=== PATIENT | male | born 1945 | race Caucasian/White ===

== ENCOUNTER 2020-03-21 08:05 | Inpatient (IN) | payer MEDICARE, SELFPAY ==
[2020-03-21] VITALS (11 sets, daily range): BP systolic 137–172; BP diastolic 72–107; PULSE 72–99; RESP 16–18; TEMP 36.6–36.9; O2SAT 97–99; BMI 17.2
--- NOTE | ~2020-03-21 | XR_ITS ---
EXAMINATION: XR chest 1V portable EXAM DATE: 03/21/2020 08:50 INDICATION: Seizure. TECHNIQUE: Portable AP frontal chest x-ray was obtained. Comparison is made to prior examination from 05/03/2019. FINDINGS: Moderate chronic hyperinflation. The lungs are clear. There are no pleural effusions. The cardiomediastinal silhouette is within normal limits. There is no pneumothorax suspected. The bone s are osteopenic. There are bony degenerative changes. IMPRESSION: 1. No acute cardiopulmonary findings. 2. Hyperinflation. Reviewed, dictated and finalized at location A.
--- NOTE | ~2020-03-21 | MR_ITS ---
EXAMINATION: MR brain/brain stem wo/w con DATE: 03/21/2020 16:00 INDICATION: Seizure TECHNIQUE: Magnetic resonance imaging (MRI) of the brain and brainstem was performed without and with 15 mL Multihance intravenous contrast. Sequences included sagittal and axial T1-weighted SE, axial d iffusion-weighted FS SE, axial T2*-weighted GRE, axial T2-weighted FLAIR, and axial T2-weighted FSE. Postcontrast axial and coronal T1-weighted SE was obtained. Apparent diffusion coefficient (ADC) maps were created. COMPARISON: 07/14/2017 FINDINGS: There are no areas of restricted diffusion to suggest acute infarction. No acute intracranial hemorrh age or abnormal intracranial mass lesion. There is a region of susceptibility artifact at the left th alamus and basal ganglia consistent with the presence of old blood products related to a hemorrhage a t this location evident on earlier CT dated 05/03/2019. This may be related to a developmental venous anomaly with a prominent contrast opacified draining vein extending through this region to the inter nal cerebral veins and greater cerebral vein of [place] on the post contrast imaging. There are scatter ed areas of nonspecific increased T2-weighted signal intensity in the cerebral white matter, predomin antly involving the deep and periventricular white matter. There are no intraparenchymal signal abnor malities seen on the other pulse sequences. Symmetric prominence of the sulci and ventricles consiste nt with moderate age-appropriate diffuse cerebral volume loss. There are no abnormal extra-axial flui d collections. Flow voids are seen in the cerebral arteries on the T2-weighted sequences consistent w ith their expected patency. Changes of bilateral intraocular lens replacement. Mucosal thickening and mucous surrounding a mucous retention in the posterior aspect of the left maxillary sinus. Visualize d orbits and soft tissues are unremarkable. There are no areas of abnormal enhancement on the post co ntrast images. IMPRESSION: 1. No acute intracranial process. 2. Chronic blood products related to a prior intraparenchymal hemorrhage involving the left basal sailaja lamus and basal ganglia which may be secondary to a developmental venous anomaly extending through th is region. 3. Age-related changes including moderate diffuse volume loss and moderate nonspecific periventricula r predominant white matter T2 hyperintensity consistent with chronic small vessel schema disease. Reviewed, dictated and finalized at location A. IMPRESSION: 1. No acute intracranial process. 2. Chronic blood products related to a prior intraparenchymal hemorrhage involv ing the left basal thalamus and basal ganglia which may be secondary to a devel opmental venous anomaly extending through this region. 3. Age-related changes including moderate diffuse volume loss and moderate nons pecific periventricular predominant white matter T2 hyperintensity consistent w ith chronic small vessel schema disease.
--- NOTE | ~2020-03-21 | CT_ITS ---
EXAMINATION: CT brain wo con EXAM DATE: 03/21/2020 09:04 INDICATION: Seizure. TECHNIQUE: Spiral CT of the head was performed without contrast. Axial, coronal and sagittal images were reviewed. The dose-length product (DLP) for this examination was 681.00 mGy-cm. The exposure w as tailored according to patient size, and iterative reconstruction (ASIR) was used as additional dos e reduction technique. Comparison is made to prior examination from 05/13/2019. FINDINGS: There is no acute intraparenchymal hemorrhage. No evidence of intraparenchymal brain mass lesion. No evidence of acute infarction. Please note that initial head CT has limited sensitivity f or small or acute infarctions. There is moderate to severe periventricular and subcortical hypodensit y, nonspecific but probably related to small vessel ischemic disease. There is moderate prominence of the sulci and ventricles related to cerebral atrophy. There is intracranial carotid arterioscler osis. There are no extra-axial collections. There is no mass effect or midline shift. Patient has had bilateral ocular lens surgery. Both globes have aspherical shape. Soft tissue is unremarkable. Moderate-sized left maxillary sinus retention cyst. There is hyperdense fluid within that sinus which could be acute hemorrhage or inspissated mucus. IMPRESSION: 1. No acute intracranial findings. 2. Chronic age related findings. 3. Left maxillary sinus inspissated mucus or blood Reviewed, dictated and finalized at location A.
--- NOTE | ~2020-03-21 | XR_ITS ---
EXAMINATION: XR barium swallow modified EXAM DATE: 03/22/2020 10:55 INDICATION: Dysphagia. TECHNIQUE: Modified barium esophagram was performed by myself to administered fluoroscopy, in conjun ction with speech pathologist who administered barium in varying consistencies as per speech patholog ist documentation. This was recorded on tape. The DAP for this procedure was 0.6 Gycm2. FINDINGS: Oral stage: Adequate function. Pharyngeal phase: Pronounced dysfunction. Laryngeal penetration: Demonstrated. Aspiration: Suspected. Laryngeal sensitivity: Absent. IMPRESSION: Significant pharyngeal phase dysfunction; Please refer to speech pathologist findings an d specific feeding recommendations. Reviewed, dictated and finalized at location A. IMPRESSION: Significant pharyngeal phase dysfunction; Please refer to speech p athologist findings and specific feeding recommendations.
--- NOTE | 2020-03-21 08:20 | ECG_ITS ---
Measurements Intervals [place] Rate: 98 P: 85 ND: 207 QRS: -62 QRSD: 110 T: 81 QT: 342 QTc: 438 Interpretive Statements SINUS RHYTHM LOW QRS VOLTAGE IN PRECORDIAL LEADS CONSIDER ANTERIOR INFARCT, AGE INDETERMINATE INFERIOR INFARCT, AGE INDETERMINATE BASELINE ARTIFACT- I, II, III, AVR, AVL, AVF, V1-V6 ABNORMAL ECG Electronically Signed On 03-21-2020 15:23:41 CDT by Gael Coy D.O.
--- NOTE | 2020-03-21 08:27 | ED.SEIZURE ---
HPI - Seizure General Chief Complaint: Seizure Stated Complaint: neuro Time Seen by Provider: 03/21/20 08:18 Source: RN notes reviewed History of Present Illness HPI Narrative: Patient presents emergency department [facility] via EMS for possible seizure. Patient was getting up out of bed this morning with staff when he had approximately 2 to 3-minute episode of being unresponsive and just staring off. There is no tonic-clonic activity noted following this the patient did have what appeared to be a postictal episode when EMS first arrived was not speaking and slowly began to speak as time went on. Patient does not recall the episode he denies any complaints at this time he does have a history of Parkinson's disease. Denies any fevers or chills chest pain shortness of breath abdominal pain nausea vomiting or any other symptoms Related Data Home Medications Medication Instructions Recorded Confirmed aspirin 325 mg PO DAILY 03/21/20 atorvastatin 40 mg PO DAILY 03/21/20 carbidopa-levodopa 1 tablet PO 03/21/20 carbidopa-levodopa 1 tablet PO HS 03/21/20 carvedilol 6.25 mg PO BID 03/21/20 clopidogrel [Plavix] 75 mg PO DAILY 03/21/20 labetalol 10 mg IV PRN 03/21/20 lisinopril 2.5 mg PO DAILY 03/21/20 nitroglycerin 0.4 mg SUBLINGUAL ONCE 03/21/20 polyethylene glycol 3350 [Miralax] 17 g PO DAILY PRN 03/21/20 Allergies Allergy/AdvReac Type Severity Reaction Status Date / Time No Known Allergies Allergy Verified 03/21/20 10:30 Review of Systems Review of Systems: Narrative: Gen.: Denies fevers or chills Eyes: Denies eye pain or visual change ENT: Denies congestion Respiratory: Denies shortness of breath or cough CV: Denies chest pain or palpitations GI: Denies abdominal pain nausea, emesis or diarrhea denies burning, urgency, frequency or hematuria Musculoskeletal: Denies back pain or muscle pain Neuro: See HPI Skin: Denies rash Except as documented, all other systems reviewed and negative [facility] Past Medical History Medical History (Updated 03/21/20 @ 11:01 by Edwin Boles DO) Parkinson's disease Social History Social History (Updated 03/21/20 @ 08:33 by Edwin C. [place], DO) Smoking status: Never smoker Gender identity (if verbalized by the patient): Male Exam Narrative: Exam Narrative: APPEARANCE: No acute distress, nontoxic, resting in bed EYES: EOMI, [place] HEENT: Normocephalic, atraumatic, OMM RESPIRATORY: No respiratory distress Clear to auscultation bilaterally with no rhonchi wheezing or rales. CARDIOVASCULAR: Regular rate and rhythm without murmurs rubs or gallops. ABDOMINAL: Soft, nontender, nondistended, no rebound or guarding MUSCULOSKELETAl: Moves all extremities. No clubbing, cyanosis or edema. NEURO: Awake and alert x 1. Following commands, speech normal, no focal deficits SKIN:: Warm, dry. No rashes lesions or abrasions PSYCHIATRIC: Normal affect/mood, Course Course Emergency Course: Discussed with patient's she states the patient was having some tremor several weeks ago and initially been started on seizure medication by Dr. Bradford however they discussed with her primary neurologist who had recommended that that medication be stopped he is only on the medicine for a few days. Patient is more awake and alert at this time Discussed with Dr. Arreola and work-up. Request patient started on Keppra 500 twice daily request MRI and EEG obtained and will follow as clinical operations consultant Discussed with Dr. Cantrell presentation work-up. Agrees with admission at this time Discussed with patient and family results of workup and diagnosis. Discussed need for admission. Patient and family understand and agree to current treatment plan Vital Signs Vital signs: Vital Signs Temperature 98.5 F 03/21/20 08:04 Pulse Rate 99 03/21/20 08:04 Respiratory Rate 18 03/21/20 08:04 Blood Pressure 168/107 H 03/21/20 08:04 Pulse Oximetry 99 03/21/20 08:04 Temperature 98.5 F 1
[2020-03-21 08:48] LABS: Basophils Percent Auto 0.4 % (0.2-1.2); Eosinophils Absolute Auto 0.1 K/mm3 (0-0.3); Eosinophils Percent Auto 1.1 % (0-4.4); Hematocrit 35.9 % (42.0-52.0); Hemoglobin 11.9 g/dL (14.0-18.0); Immature Granulocyte Absolute 0.03 K/mm3 (0.00-0.031); Immature Granulocyte Percent A 0.6 % (0-0.5); Lymphocytes Absolute Auto 0.98 K/mm3 (0.9-3.2); Lymphocytes Percent Auto 20.6 % (18.3-44.2); Mean Corpuscular HGB Conc 33.1 g/dl (32-36); Mean Corpuscular Hemoglobin 31.4 pg (26-34); Mean Corpuscular Volume 94.7 fl (80-100); Mean Platelet Volume 9.4 fl (7.4-10.4); Monocytes Absolute Auto 0.3 K/mm3 (0.1-0.6); Monocytes Percent Auto 6.3 % (2.6-8.5); Neutrophils Absolute Auto 3.4 K/mm3 (1.3-6.7); Platelet Count Result 152 k/mm3 (150-375); Red Blood Count 3.79 M/mm3 (4.6-6.20); Red Cell Distribution Width 14.6 % (11.5-14.5); White Blood Count 4.8 K/mm3 (4.5-10.0)
[2020-03-21 09:03] LABS: INR 1.2; Prothrombin Time 14.4 Seconds (11.1-14.7)
[2020-03-21 09:04] LABS: Partial Thromboplastin Time 27.5 SECONDS (22.3-36.8)
[2020-03-21 09:19] LABS: Troponin I 0.015 ng/mL (0.000-0.034)
[2020-03-21 09:48] LABS: Alanine Aminotransferase 11 U/L (4-50); Alkaline Phosphatase 61 U/L (38-126); Anion Gap 12 mmol/L (8-16); Aspartate Amino Transferase 27 U/L (17-59); Bilirubin,Total 1.2 mg/dL (0.2-1.3); Blood Urea Nitrogen 17 mg/dL (9-20); Calcium 9.9 mg/dL (8.4-10.2); Carbon Dioxide 24 mmol/L (22-30); Chloride 99 mmol/L (98-107); Estimated CRCL calculation 62 ml/min; Estimated Glomerular Filt Rate > 60; Glucose 141 mg/dL (75-110); Potassium 4.1 mmol/L (3.4-5.0); Sodium 135 mmol/L (137-145)
[2020-03-21 10:02] LABS: Add Urine Microscopic? YES; Appearance Urine Clear (Clear); Bilirubin Urine Negative (Negative); Blood Urine Negative (Negative); Color Urine Yellow (Yellow); Glucose Urine UA Negative (Negative); Ketones Urine Negative (Negative); Leukocyte Esterase Ur Negative LEU/UL (Negative); Mucus Urine Rare /lpf; Nitrate Urine Negative (Negative); Protein Urine Negative (Negative); Specific Grav Ur 1.017 (1.001-1.035); WBC Urine 0-3 /hpf
[2020-03-21] MEDS: levETIRAcetam 500MG/NACL 100ML 500 MG/100 ML BAG 400 MG IVPB ×2 (10:56→21:04)
--- NOTE | 2020-03-21 10:56 | PC.NURSE ---
pt more alert. able to carry on conversation with ease. at bedside.
--- NOTE | 2020-03-21 12:20 | PC.NURSE ---
This patient, Uriah Hernandez, was admitted to 3 [facility] Surg Room 322-02. Patient/family oriented to hospital policies and general routines including ID bracelet, bed and alarms, visiting hours, pain management, procedures, bathroom and other care routines, personal items, smoking policy, room service/diet, and visiting hours. Valuables list has been completed. Information on how to activate the Rapid Response Team has been discussed. Patient/Family are encouraged to report perceived risks to care and to ask questions if they do not understand what they are told or what they should do.
[2020-03-21 13:55] LABS: Troponin I 0.027 ng/mL (0.000-0.034)
--- NOTE | 2020-03-21 16:15 | PM.IMHP ---
H&P: HPI History of Present Illness Date/Time: 03/21/20 16:15 Chief complaint: Unresponsive episode. Narrative: Uriah Hernandez is an unfortunate 75-year-old male with, coronary artery disease, chronic anemia, and hypertension who presented to the emergency department earlier today via EMS from [facility] for evaluation after an unresponsive episode. He is not able to provide me with an accurate history as he does not recall the events that transpired today and as such a majority of this history is obtained via a review of his electronic medical records and those that [facility], as well as discussions with his via phone, with the patient's permission. Reportedly he was in usual state of health at approximately 07:00 when he was wakened by staff. About 15 minutes later they were using a sit to stand to transfer him to his wheelchair when he had an unresponsive episode lasting 2 to 3 minutes. He was reportedly ?just staring off? and he was confused when he came to. There is no mention of overt seizure activity or loss of consciousness. As the hours have progressed he is now speaking at as per his baseline. He has no prior history of seizure but Rife reports that several weeks ago he began having tremors of his upper extremities and he was started on primidone by the house doctor at the [facility]. I believe he received a drug for approximately 3 days before it was discontinued by his neurologist, Dr. Zarate at [facility]. At the time my evaluation he has no complaints and specifically denies headache, dizziness, auditory and visual changes, paresthesias, focal weakness, chest pain, shortness of breath, nausea, and vomiting. He has not had any recent falls or head trauma. Review of Systems Review of Systems: Narrative: Twelve systems were reviewed with pertinent positives and negatives as per HPI. Somewhat limited as he really has no memory as to the events that transpired this morning. In fact his came to visit today, and he did not even remember that. That was the 1st time she had seen him in 7 months as no visitors are loud at his penitentiary due to the COVID pandemic. relates to me that he has had problems with dysphagia in the past and used to feed himself and was much more independent the last time she saw him, then when she saw him today. She is also concerned as he has lost about 30 lb in the past 7 months. Except as documented, all other systems were reviewed and are negative. [facility] Past Medical History Medical History (Updated 03/21/20 @ 21:53 by Marlen Torres PA-C) Chronic anemia Coronary artery disease Late presentation anterior wall STEMI in November 2018 status post balloon angioplasty to the distal LAD. Dysphagia Hypertension Parkinson's disease Transient ischemic attack Surgical History Surgical History (Updated 03/21/20 @ 21:44 by Marlen Torres PA-C) History of cardiac catheterization (~11/2018) Status post angioplasty to the distal LAD. 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 Family History Family History Father Colon cancer Sibling Carcinoma of colon Social History Social History (Updated 03/21/20 @ 21:47 by Marlen Torres PA-C) Social History: Surrogate decision maker: Landy Hernandez, . Code status: Do not resuscitate. Smoking status: Never smoker Alcohol intake: never Substance use: never Additional living arrangements comments: He is , and he and his have 3 grown children. He is a permanent resident at [facility]. Essentially a full assist, transfers to wheelchair with sit and stand. Occasional problems with dysphagia.
--- NOTE | 2020-03-21 16:45 | WPDNEURCNPN ---
Assessment and Plan Assessment and plan (1) Seizure: Code(s): R56.9 - Unspecified convulsions Status: Acute (2) Parkinson's disease: Code(s): G20 - Parkinson's disease Status: Acute (3) Dementia: Code(s): F03.90 - Unspecified dementia without behavioral disturbance Status: Acute Additional Plan continue anticonvulsant at this time and monitor him Consult date: 03/21/20 Time Seen: 16:00 HPI: Uriah Hernandez is a 75 year old male who I probably have seen in the past has advanced Parkinson's disease at this time and cognitive dysfunction was brought in because of having had seizure which clinically does sound like that the patient has his left elbow fused for long time remains quite rigid in the bed with cognitive dysfunction however is not in any discomfort Is able to follow commands and able to tell me that he denies having any headache chest pain shortness of breath fever chills sore throat probably having some difficulty eating and I would not be surprised that he has oropharyngeal dysphagia related to underlying Parkinson's disease Review of Systems Review of Systems: All systems reviewed & are unremarkable except as noted in HPI and below PMFSH Past Medical History Medical History Parkinson's disease Family History Family History Father Colon cancer Social History Social History Smoking status: Unknown if ever smoked Alcohol intake: never Substance use: never Gender identity (if verbalized by the patient): Male Sexual Orientation (if Verbalized by the Patient): Straight or Heterosexual Spiritual care concerns: No Meds Home Medications and Allergies Home Medications Medication Instructions Recorded Confirmed Type aspirin 325 mg PO DAILY 03/21/20 History atorvastatin 40 mg PO DAILY 03/21/20 History carbidopa-levodopa 1 tablet PO 03/21/20 History carbidopa-levodopa 1 tablet PO HS 03/21/20 History carvedilol 6.25 mg PO BID 03/21/20 History clopidogrel [Plavix] 75 mg PO DAILY 03/21/20 History labetalol 10 mg IV PRN 03/21/20 History lisinopril 2.5 mg PO DAILY 03/21/20 History nitroglycerin 0.4 mg SUBLINGUAL ONCE 03/21/20 History polyethylene glycol 3350 [Miralax] 17 g PO DAILY PRN 03/21/20 History Allergies Allergy/AdvReac Type Severity Reaction Status Date / Time No Known Allergies Allergy Verified 03/21/20 10:30 Vital Signs Vital Signs - 24 hr 03/21/20 08:04 03/21/20 08:45 03/21/20 10:40 Temperature 36.9 C Pulse Rate 84 93 77 Respiratory Rate 18 16 16 Blood Pressure 168/107 H 137/88 171/101 H Pulse Oximetry 99 03/21/20 11:27 03/21/20 12:05 03/21/20 12:26 Temperature 36.7 C Pulse Rate 88 77 88 Respiratory Rate 17 18 Blood Pressure 172/98 H 158/87 H Pulse Oximetry 98 99 Exam Const: General: comfortable and no acute distress HENMT: General nose exam: Normal nares present Mouth: Yes moist mucous membranes Eyes: General: appearance normal, both eyes and all related structures Neck: Neck: supple and no JVD Resp: Effort & Inspection: normal respiratory effort Auscultation: clear to auscultation bilaterally Cardio: Rate: regular rate Rhythm: regular rhythm GI: Auscultation: normal bowel sounds Skin: General skin exam: normal color and no rashes or lesions noted Neuro: Other: if my memory does not fall to her he has lost quite a bit of weight since a loss see him few years ago is awake and alert follows commands essentially at times nonverbal but able to utter few words and sentences has clear moderately advanced dementia and also Parkinson's disease without any lateralizing focal deficits Extrem: Other: developing contractures rather 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
[2020-03-21 16:51] LABS: Troponin I 0.034 ng/mL (0.000-0.034)
[2020-03-21] MEDS: carvediloL 3.125 MG TABLET PO (22:29)
[2020-03-21] MEDS: ATORVASTATIN 40 MG TABLET PO (22:29)
[2020-03-21] MEDS: CARBIDOPA/LEVODOPA 25/100 MG CR TABLET 1 TABLET PO (22:30)
[2020-03-22] VITALS (12 sets, daily range): BP systolic 123–155; BP diastolic 58–89; PULSE 62–76; RESP 16–18; TEMP 36.5–37.2; O2SAT 97–100
[2020-03-22 06:14] LABS: Basophils Percent Auto 0.4 % (0.2-1.2); Eosinophils Percent Auto 0.4 % (0-4.4); Hematocrit 31.6 % (42.0-52.0); Hemoglobin 10.5 g/dL (14.0-18.0); Immature Granulocyte Absolute 0.01 K/mm3 (0.00-0.031); Immature Granulocyte Percent A 0.2 % (0-0.5); Lymphocytes Absolute Auto 1.04 K/mm3 (0.9-3.2); Lymphocytes Percent Auto 22.3 % (18.3-44.2); Mean Corpuscular HGB Conc 33.2 g/dl (32-36); Mean Corpuscular Hemoglobin 31.5 pg (26-34); Mean Corpuscular Volume 94.9 fl (80-100); Mean Platelet Volume 9.5 fl (7.4-10.4); Monocytes Absolute Auto 0.4 K/mm3 (0.1-0.6); Monocytes Percent Auto 7.7 % (2.6-8.5); Neutrophils Absolute Auto 3.2 K/mm3 (1.3-6.7); Platelet Count Result 121 k/mm3 (150-375); Red Blood Count 3.33 M/mm3 (4.6-6.20); Red Cell Distribution Width 14.6 % (11.5-14.5); White Blood Count 4.7 K/mm3 (4.5-10.0)
[2020-03-22 06:25] LABS: Albumin Level 3.5 g/dL (3.5-5.1); Alkaline Phosphatase 56 U/L (38-126); Anion Gap 7 mmol/L (8-16); Aspartate Amino Transferase 20 U/L (17-59); Bilirubin,Total 1.1 mg/dL (0.2-1.3); Blood Urea Nitrogen 14 mg/dL (9-20); Calcium 9.6 mg/dL (8.4-10.2); Carbon Dioxide 31 mmol/L (22-30); Chloride 99 mmol/L (98-107); Estimated CRCL calculation 52 ml/min; Estimated Glomerular Filt Rate > 60; Glucose 107 mg/dL (75-110); Phosphorus 3.7 mg/dL (2.5-4.5); Potassium 3.6 mmol/L (3.4-5.0); Sodium 137 mmol/L (137-145)
[2020-03-22 06:49] LABS: Alanine Aminotransferase < 4 U/L (4-50)
[2020-03-22] MEDS: levETIRAcetam 500MG/NACL 100ML 500 MG/100 ML BAG 400 MG IVPB ×2 (08:08→21:36)
[2020-03-22] MEDS: POTASSIUM CHLORIDE 10 MEQ TABLET.ER PO ×2 (08:09→18:25)
[2020-03-22] MEDS: CARBIDOPA/LEVODOPA 25/100 MG TABLET 2 TABLET PO ×3 (08:09→18:24)
[2020-03-22] MEDS: CARBIDOPA/LEVODOPA 12.5/50 MG TABLET 1 TABLET PO ×3 (08:09→18:25)
[2020-03-22] MEDS: carvediloL 3.125 MG TABLET PO ×2 (08:10→21:34)
--- NOTE | 2020-03-22 11:39 | PCSTNOTE ---
MBS completed. Please see ST Evaluation for details and recommendations.
[2020-03-22] MEDS: LACTATED RINGERS 1,000 ML 60 ML IV CONT (12:26)
--- NOTE | 2020-03-22 14:27 | PM.IMPN ---
Progress Note: A&P Assessment and Plan (1) Unresponsive episode: Code(s): R41.89 - Other symptoms and signs involving cognitive functions and awareness Status: Acute Assessment and Plan: The patient has been admitted to the hospitalist service overnight for further evaluation of an unresponsive episode, concerning for seizure given the fact that he was alert but ?staring off? for several minutes and was confused thereafter. Patient is at high risk of having seizures due to his history. He has no memory as to what occurred today, and states that he does not have a diagnosis of dementia. Brain CT does not show acute findings. MRI showed No acute intracranial process. 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 Age-related changes including moderate diffuse volume loss and moderate nonspecific periventricular predominant white matter T2 hyperintensity consistent with chronic small vessel schema disease. Patient was started on IV Keppra q.12 in the ER An EEG was ordered on the patient and pending at this time Neurology was consulted from the ER for further evaluation of possible seizure activity Continue monitoring the patient at this time and appreciate neurology input. (2) Dysphagia: Code(s): R13.10 - Dysphagia, unspecified Status: Acute Assessment and Plan: Patient reports history of dysphagia as well as a 30 lb weight loss in last 7 months. Swallow study showed penetration of thin liquids, no acute signs of aspiration, unable to clear, 12nd to leg with swallowing. Speech therapy recommends her being NPO at this point in time due to his history. I talked to the patient's who states he has had swallowing issues in the past but worked with therapy and it has otherwise improved and he is on a regular diet with thin liquids at the senior living. Explained to her how the swallow study went and their recommendations. At this time she is okay with patient being NPO with some IV fluid hydration. She wants to talk with her family about the next steps. She does not really want him to have a G-tube placed at this time. I gave her the options of allowing him to eat, keeping his DNR status and then returning back to the senior living with the risk of aspiration and severe infection in the future verses placing him on hospice upon discharge to prevent further hospitalizations in case severe infection occurs he does need to come back to the hospital. She will be is be tomorrow morning to discuss her wishes since she is the power of corporate associate attorney. Continue monitoring. (3) Parkinson's disease: Code(s): G20 - Parkinson's disease Status: Acute Assessment and Plan: We will continue with his oral Parkinson's medications at this time. (4) Hypertension: Code(s): I10 - Essential (primary) hypertension Status: Acute Assessment and Plan: This morning but he received his home medications. Will continue monitoring. Make adjustments as necessary. (5) Chronic anemia: Code(s): D64.9 - Anemia, unspecified Status: Acute Assessment and Plan: Normocytic anemia with stable H&H at this time. No acute signs of bleeding. Most likely his baseline. (6) Coronary artery disease: Code(s): I25.10 - Atherosclerotic heart disease of [place] coronary artery without angina pectoris Status: Acute Assessment and Plan: No chest pain or shortness of breath reported by the patient. Will continue home medications at this time. Continue monitoring
--- NOTE | 2020-03-22 15:30 | WPDNEUROPN ---
Progress Note: A&P Assessment and Plan (1) Coronary artery disease: Code(s): I25.10 - Atherosclerotic heart disease of [place] coronary artery without angina pectoris Status: Acute (2) Chronic anemia: Code(s): D64.9 - Anemia, unspecified Status: Acute (3) Dysphagia: Code(s): R13.10 - Dysphagia, unspecified Status: Acute (4) Hypertension: Code(s): I10 - Essential (primary) hypertension Status: Acute (5) Abnormal brain CT: Code(s): R90.89 - Other abnormal findings on diagnostic imaging of central nervous system Status: Acute (6) Dementia: Code(s): F03.90 - Unspecified dementia without behavioral disturbance Status: Acute (7) Seizure: Code(s): R56.9 - Unspecified convulsions Status: Acute (8) Parkinson's disease: Code(s): G20 - Parkinson's disease Status: Acute Additional Plan continue the anticonvulsant at this time, patient mentions that he has not walked for quite some time and has been essentially in the wheelchair so I do not see any physical therapy would help him considering that he had started showing signs of dystonia and also has elbow fused on the left side for quite some time Present management needs to be continued Review of Systems Review of Systems: All systems reviewed & are unremarkable except as noted in HPI and below Exam Const: General: comfortable and no acute distress HENMT: General nose exam: Normal nares present Mouth: Yes moist mucous membranes Eyes: General: appearance normal, both eyes and all related structures Neck: Neck: supple and no JVD Resp: Effort & Inspection: normal respiratory effort Auscultation: clear to auscultation bilaterally Cardio: Rate: regular rate Rhythm: regular rhythm GI: Auscultation: normal bowel sounds Skin: General skin exam: normal color and no rashes or lesions noted Neuro: Other: patient is awake and alert partially oriented follow simple commands is speech is much more fluent not any distress has moderately severe cognitive deficit along with signs of Parkinson's disease bilaterally with the tremors obvious when he moves his arms Extrem: General: normal to inspection Psych: Other: moderately advanced dementia Objective Data Vital Signs Vital Signs: Vital Signs - 24 hr 03/21/20 16:00 03/21/20 20:00 03/21/20 22:00 Temperature 36.6 C Pulse Rate 76 73 77 Respiratory Rate 16 Blood Pressure 146/95 H Pulse Oximetry 97 03/21/20 22:29 03/22/20 00:00 03/22/20 04:00 Temperature Pulse Rate 72 67 62 Respiratory Rate Blood Pressure Pulse Oximetry 03/22/20 06:00 03/22/20 08:00 03/22/20 08:05 Temperature 36.5 C 36.7 C Pulse Rate 68 62 76 Respiratory Rate 16 18 Blood Pressure 140/86 155/89 H Pulse Oximetry 98 100 03/22/20 08:10 03/22/20 12:00 Temperature Pulse Rate 76 68 Respiratory Rate Blood Pressure Pulse Oximetry Intake/Output Intake/Output: Intake & Output 03/19/20 03/20/20 03/21/20 03/22/20 23:59 23:59 23:59 23:59 Intake Total 460 90 Output Total 200 Balance 260 90 Meds/Results Medications: Active Medications Generic Name Dose Route Start Last Admin Trade Name Freq PRN Reason Stop Dose Admin Atorvastatin Calcium 40 mg 03/21/20 22:15 03/21/20 22:29 Lipitor PO 40 mg HS ALISON Administration Carbidopa/Levodopa 1 tablet 03/21/20 22:15 03/21/20 22:30 Sinemet Cr 25/100 Mg PO 1 tablet HS ALISON Administration Carbidopa/Levodopa 2 tablet 03/22/20 08:00 03/22/20 12:26 Sinemet 25/100 Mg PO 2 tablet TIDWM ALISON Administration Carbidopa/Levodopa 1 tablet 03/22/20 08:00 03/22/20 13:18 Sinemet 12.5/50 Mg PO 1 tablet TIDWM ALISON Administration Carvedilol 3.125 mg 03/21/20 22:15 03/22/20 08:10 Coreg PO 3.125 mg Q12HR ALISON Administration Levetiracetam 500 mg in 100 mls @ 400 mls/hr 03/21/20 21:00 03/22/20 08:08 Isabela Johnson I
[2020-03-22] MEDS: ATORVASTATIN 40 MG TABLET PO (21:31)
[2020-03-22] MEDS: CARBIDOPA/LEVODOPA 25/100 MG CR TABLET 1 TABLET PO (21:34)
[2020-03-23] VITALS (9 sets, daily range): BP systolic 114–138; BP diastolic 53–80; PULSE 65–84; RESP 16–18; TEMP 36.7–37.4; O2SAT 94–96; BMI 17.2
[2020-03-23 06:13] LABS: Hemoglobin 10.3 g/dL (14.0-18.0)
[2020-03-23 06:23] LABS: Anion Gap 7 mmol/L (8-16); Blood Urea Nitrogen 15 mg/dL (9-20); Calcium 9.5 mg/dL (8.4-10.2); Carbon Dioxide 28 mmol/L (22-30); Chloride 101 mmol/L (98-107); Estimated CRCL calculation 66 ml/min; Estimated Glomerular Filt Rate > 60; Glucose 120 mg/dL (75-110); Potassium 3.5 mmol/L (3.4-5.0); Sodium 136 mmol/L (137-145)
[2020-03-23] MEDS: LACTATED RINGERS 1,000 ML 60 ML IV CONT ×2 (08:49→18:05)
[2020-03-23] MEDS: levETIRAcetam 500MG/NACL 100ML 500 MG/100 ML BAG 400 MG IVPB ×2 (09:23→20:47)
[2020-03-23] MEDS: CARBIDOPA/LEVODOPA 12.5/50 MG TABLET 1 TABLET PO ×3 (09:24→18:04)
[2020-03-23] MEDS: CARBIDOPA/LEVODOPA 25/100 MG TABLET 2 TABLET PO ×3 (09:24→18:03)
[2020-03-23] MEDS: carvediloL 3.125 MG TABLET PO ×2 (09:24→20:45)
--- NOTE | 2020-03-23 09:44 | WPDNEUROLOGY ---
Neurology EEG Report General Information Date of Study: 03/22/20 TEST EEG DIAGNOSIS seizures CONDITION OF RECORDING awake drowsy and sleep EEG NUMBER [id number] CLINICAL HISTORY seizures EEG DESCRIPTION basically resting occipital frequency consists of large amount of poorly organized low to medium voltage 5 to 7 hertz per 2nd theta admixed in superimposed by low-voltage 15 to 18 hertz per 2nd beta. Bilateral symmetrical sleep activity seen during brief periods of sleep. Non paroxysmal. Nonfocal. Nonlateralizing. IMPRESSION No significant abnormalities noted
--- NOTE | 2020-03-23 12:18 | PM.IMPN ---
Progress Note: A&P Assessment and Plan (1) Unresponsive episode: Code(s): R41.89 - Other symptoms and signs involving cognitive functions and awareness Status: Acute Assessment and Plan: The patient has been admitted to the hospitalist service overnight for further evaluation of an unresponsive episode, concerning for seizure given the fact that he was alert but ?staring off? for several minutes and was confused thereafter. Patient is at high risk of having seizures due to his history. Brain CT does not show acute findings. MRI showed No acute intracranial process. 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 Age-related changes including moderate diffuse volume loss and moderate nonspecific periventricular predominant white matter T2 hyperintensity consistent with chronic small vessel schema disease. Continue on IV Keppra q.12 An EEG was ordered and showed no acute abnormality/findings. Neurology evaluated the patient recommends continuing Keppra at this time. Continue monitoring the patient at this time and appreciate neurology input. (2) Dysphagia: Code(s): R13.10 - Dysphagia, unspecified Status: Acute Assessment and Plan: Patient reports history of dysphagia as well as a 30 lb weight loss in last 7 months. Swallow study showed penetration of thin liquids, no acute signs of aspiration, unable to clear, 12nd to leg with swallowing. Speech therapy recommends her being NPO at this point in time due to his history. I talked to the patient's who states he has had swallowing issues in the past but worked with therapy and it has otherwise improved and he is on a regular diet with thin liquids at the care home. Explained to her how the swallow study went and their recommendations. The is at bedside at this time and would like for him to continue on and diet even with the risk of aspiration. She also would like to talk to [facility] about possible hospice upon discharge back to the care home. Speech therapy evaluated the patient today and states he can have a pureed diet with mildly thickened liquids at this time. She states speech can continue working with him and advance as tolerated. Continue monitoring. (3) Parkinson's disease: Code(s): G20 - Parkinson's disease Status: Acute Assessment and Plan: We will continue with his oral Parkinson's medications at this time. (4) Hypertension: Code(s): I10 - Essential (primary) hypertension Status: Acute Assessment and Plan: Blood pressure has been stable. Will continue monitoring. Make adjustments as necessary. (5) Chronic anemia: Code(s): D64.9 - Anemia, unspecified Status: Acute Assessment and Plan: Normocytic anemia with stable H&H at this time. No acute signs of bleeding. Most likely his baseline. (6) Coronary artery disease: Code(s): I25.10 - Atherosclerotic heart disease of [place] coronary artery without angina pectoris Status: Acute Assessment and Plan: No chest pain or shortness of breath reported by the patient. Will continue home medications at this time. Continue monitoring Time Spent With Patient Time with patient: 25 - 35 minutes Subjective Date/time seen: 03/23/20 12:18 Interval history: Date of service 03/23/2020: The patient is a poor historian secondary to old stroke. He denies any pain at this time or concerns. He denies chest pain, shortness of breath, cough, fever, chills nausea, vomiting, abd
[2020-03-23] MEDS: POTASSIUM CHLORIDE 10 MEQ TABLET.ER PO ×2 (12:49→18:04)
[2020-03-23] MEDS: CARBIDOPA/LEVODOPA 25/100 MG CR TABLET 1 TABLET PO (20:46)
[2020-03-23] MEDS: ATORVASTATIN 40 MG TABLET PO (20:46)
[2020-03-24 06:00] VITALS: BP 135/61; PULSE 83; RESP 22; TEMP 36.7; O2SAT 97
[2020-03-24 09:09] VITALS: PULSE 68
[2020-03-24] MEDS: CARBIDOPA/LEVODOPA 12.5/50 MG TABLET 1 TABLET PO (09:09)
[2020-03-24] MEDS: carvediloL 3.125 MG TABLET PO (09:09)
[2020-03-24] MEDS: CARBIDOPA/LEVODOPA 25/100 MG TABLET 2 TABLET PO (09:20)
[2020-03-24] MEDS: levETIRAcetam 500MG/NACL 100ML 500 MG/100 ML BAG 400 MG IVPB (09:20)
[2020-03-24] MEDS: POTASSIUM CHLORIDE 10 MEQ TABLET.ER PO (09:20)
[2020-03-24] MEDS: LACTATED RINGERS 1,000 ML 60 ML IV CONT (09:23)
[2020-03-24 09:58] VITALS: BP 149/84; PULSE 88; TEMP 36.8; O2SAT 94
[2020-03-24 10:02] VITALS: O2SAT 91
--- NOTE | 2020-03-24 11:36 | WPDNEUROPN ---
Progress Note: A&P Assessment and Plan (1) Coronary artery disease: Code(s): I25.10 - Atherosclerotic heart disease of [place] coronary artery without angina pectoris Status: Acute (2) Chronic anemia: Code(s): D64.9 - Anemia, unspecified Status: Acute (3) Dysphagia: Code(s): R13.10 - Dysphagia, unspecified Status: Acute (4) Hypertension: Code(s): I10 - Essential (primary) hypertension Status: Acute (5) Abnormal brain CT: Code(s): R90.89 - Other abnormal findings on diagnostic imaging of central nervous system Status: Acute (6) Unresponsive episode: Code(s): R41.89 - Other symptoms and signs involving cognitive functions and awareness Status: Acute (7) Dementia: Code(s): F03.90 - Unspecified dementia without behavioral disturbance Status: Acute (8) Seizure: Code(s): R56.9 - Unspecified convulsions Status: Acute Additional Plan as the patient is being placed on the hospice he can continue the Keppra he does come in liquid form 500 mg twice a day which can be increased to 750 twice a day if the seizures recur but the otherwise he will need the supportive care along with the continuation of the medications Review of Systems Review of Systems: All systems reviewed & are unremarkable except as noted in HPI and below Exam Narrative: Exam Narrative: examination reveals him to be in comfortable position at this particular time ear nose throat examination normal neck is supple with no cervical bruit no limited range of motion heart regular lungs with occasional rhonchi abdomen is soft nontender normal bowel sounds and neurologically he is at this stage drowsy and sleepy and has left-sided weakness which is chronic in nature Objective Data Vital Signs Vital Signs: Vital Signs - 24 hr 03/23/20 12:00 03/23/20 14:00 03/23/20 20:44 Temperature 37.4 C Pulse Rate 71 65 Respiratory Rate 16 Blood Pressure 114/53 L 119/64 Pulse Oximetry 94 03/23/20 20:45 03/23/20 22:00 03/24/20 06:00 Temperature 36.7 C 36.7 C Pulse Rate 84 73 83 Respiratory Rate 18 22 H Blood Pressure 116/72 135/61 Pulse Oximetry 96 97 03/24/20 09:09 03/24/20 10:02 Temperature Pulse Rate 68 Respiratory Rate Blood Pressure Pulse Oximetry 91 Intake/Output Intake/Output: Intake & Output 03/21/20 03/22/20 03/23/20 03/24/20 23:59 23:59 23:59 23:59 Intake Total 285 415 0748 1100 Output Total 200 Balance 339 290 2760 1100 Meds/Results Medications: Active Medications Generic Name Dose Route Start Last Admin Trade Name Niravq PRN Reason Stop Dose Admin Atorvastatin Calcium 40 mg 03/21/20 22:15 03/23/20 20:46 Lipitor PO 40 mg HS ALISON Administration Carbidopa/Levodopa 1 tablet 03/21/20 22:15 03/23/20 20:46 Sinemet Cr 25/100 Mg PO 1 tablet HS ALISON Administration Carbidopa/Levodopa 2 tablet 03/22/20 08:00 03/24/20 09:20 Sinemet 25/100 Mg PO 2 tablet TIDWM ALISON Administration Carbidopa/Levodopa 1 tablet 03/22/20 08:00 03/24/20 09:09 Sinemet 12.5/50 Mg PO 1 tablet TIDWM ALISON Administration Carvedilol 3.125 mg 03/21/20 22:15 03/24/20 09:09 Coreg PO 3.125 mg Q12HR ALISON Administration Levetiracetam 500 mg in 100 mls @ 400 mls/hr 03/21/20 21:00 03/24/20 09:35 Keppra Iv IVPB Infused Q12HR ALISON Infusion Lactated Ringer's 1,000 mls @ 60 mls/hr 03/22/20 11:25 03/24/20 09:23 Lr - Lactated Ringers Iv IV CONT 60 mls/hr .[id number] ALISON Administration Potassium Chloride 10 meq 03/22/20 08:00 03/24/20 09:20 Kcl Tablet PO 04/21/20 08:01 10 meq BIDWM ALISON Administration Radiology Results: ITS Impressions Chest X-Ray 03/21/20 08:52 IMPRESSION: 1. No acute cardiopulmonary findings. 2. Hyperinflation. Head CT 03/21/20 09:09 IMPRESSION: 1. No acute intracranial findings. 2. Chronic age related findings. 3. Left maxillary si
--- NOTE | 2020-03-24 13:03 | PM.DS ---
DS: Admitting Diagnosis Admitting Diagnosis Admitting Diagnosis: Unresponsive episode. DS: Discharge Diagnosis Discharge Diagnosis (1) Unresponsive episode: Code(s): R41.89 - Other symptoms and signs involving cognitive functions and awareness Status: Acute Assessment and Plan: Discharge Summary (Date of service 03/24/20): Mr. Hernandez is a 75 y.o. male with PMH significant for advanced Parkinson's disease, progressive dysphagia over the several months, hemorrhagic stroke affecting the left basal thalamus and basal ganglia in April 2019, and coronary artery disease who presented to the emergency department via EMS from [facility] for the evaluation of an unresponsive episode. The episode reportedly lasted 2-3 minutes and subsequent confusion concerning for post-ictal state with concerns for seizure. Brain CT had no evidence of acute findings. CXR showed hyperinflation with no evidence of consolidation. Neurology was consulted from the emergency department and recommended the initiation of keppra. 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 Age-related changes including moderate diffuse volume loss and moderate nonspecific periventricular predominant white matter T2 hyperintensity consistent with chronic small vessel schema disease were also apparent but there was no evidence for acute intracranial process. He underwent EEG with impression demonstrating no abnormalities. Speech therapy evaluation including modified barium swallow was performed due to hx of dysphagia and 30lb weight loss. Evidence of inability to clear penetration was visualized and TRADE FACILITATOR recommended that the patient be kept NPO. The patient's elected to continue a diet despite the risks for aspiration and elected for hospice care with [facility]. Discharge back to [facility] with [facility] hospice was anticipated for the morning of 03/24 but that morning, the RN reported that the patient started gazing to the left and twitching. Based on RN description, it sounds as if this progressed to a generalized tonic-clonic seizure which I was not able to witness. Activity subsided within 30 seconds per nursing reports and he was in a drowsy state suggesting post-ictal period when I arrived to evaluate him. Dr. Leblanc was notified and recommended to continue keppra and increase it to 750mg BID should he develop any further seizures. He was also seen by Dr. Cantrell, my collaborating physician, and we felt that inpatient hospice may be more appropriate given his clinical condition and need for frequent monitoring. He was discharged to inpatient [facility] hospice on 03/24/20. (2) Seizure: Code(s): R56.9 - Unspecified convulsions Status: Acute (3) Dysphagia: Code(s): R13.10 - Dysphagia, unspecified Status: Acute (4) Parkinson's disease: Code(s): G20 - Parkinson's disease Status: Chronic (5) Hypertension: Code(s): I10 - Essential (primary) hypertension Status: Chronic (6) Chronic anemia: Code(s): D64.9 - Anemia, unspecified Status: Chronic (7) Coronary artery disease: Code(s): I25.10 - Atherosclerotic heart disease of [place] coronary artery without angina pectoris Status: Chronic (8) Cerebrovascular disease: Code(s): I67.9 - Cerebrovascular disease, unspecified Status: Chronic DS: Summary Hospital Course Reason for hospitalization: Unresponsive episode Hospital Course: As above. Status at Discharge Functional status at discharge: bed bound (Full assist transfer to wheelchair) Overall status at discharge: patient is not back to baseline Time Spent with Patient Time attestation: Total time spent providing and/or coordinating discharge services: 25 minutes
[2020-03-24 13:49] LABS: SARS-CoV-2 RNA PCR Negative
--- NOTE | 2020-03-24 13:59 | PCSTNOTE ---
The patient treatment was not able to be completed on 03/24/20 due to possibly having a seizure during breakfast and being seen by Hospice at the time therapist was available in order to be placed on Hospice. May discharge today due to going on Hospice and possibly discontinuing oral feeding.
[2020-03-24 14:05] VITALS: PULSE 71; RESP 18; O2SAT 97
== END 2020-03-24 14:45 | disposition hospice, home (50) | DRG 101 ==
LOC: ANHED 11:01 → ANHIMU 11:04 → ANH3MEDSUR 11:18
PROVIDERS: Physician Assistant; Admitting Provider Family Medicine; Emergency Provider Emergency Medicine; PCP Family Medicine; Visit Provider Physician Assistant
DX: R56.9 Unspecified convulsions (principal); R41.89 Other symptoms and signs involving cognitive functions and awareness; G20 Parkinson's disease; D64.9 Anemia, unspecified; Z20.828 Contact with and (suspected) exposure to other viral communicable diseases; I25.10 Atherosclerotic heart disease of native coronary artery without angina pectoris; I10 Essential (primary) hypertension; R13.10 Dysphagia, unspecified; F03.90 Unspecified dementia, unspecified severity, without behavioral disturbance, psychotic disturbance, mood disturbance, and anxiety; Z66 Do not resuscitate; Z98.42 Cataract extraction status, left eye; Z98.61 Coronary angioplasty status; Z86.73 Personal history of transient ischemic attack (TIA), and cerebral infarction without residual deficits; Z98.41 Cataract extraction status, right eye
CPT/HCPCS: 36415; 51701; 70450; 70553; 71045; 80048; 80053; 80076; 81001; 83735; 84100; 84443; 84484; 85014; 85018; 85025; 85610; 85730; 87635; 92526; 92611; 93005; 95816; 96361; 96374; 96376; 99285; A9270; A9577; C9803; G0378; J1953; J7120; U0003

== ENCOUNTER 2020-03-24 14:46 | HOS | payer OTHER, MEDICARE, SELFPAY ==
--- NOTE | 2020-03-24 19:42 | ADMGEN ---
This patient, Uriah Hernandez, was admitted to 3 [facility] Surg Room 322-02. Patient admitted to [facility]. Patient/family oriented to hospital policies and general routines including ID bracelet, bed and alarms, visiting hours, pain management, procedures, bathroom and other care routines, personal items, smoking policy, room service/diet, and visiting hours. Valuables list has been completed. Information on how to activate the Rapid Response Team has been discussed. Patient/Family are encouraged to report perceived risks to care and to ask questions if they do not understand what they are told or what they should do.
[2020-03-24 20:30] VITALS: BP 144/73; PULSE 77; RESP 22; TEMP 37.4; O2SAT 100
[2020-03-24] MEDS: levETIRAcetam 1000MG/NACL100ML 1,000 MG/100 ML BAG 400 MG IVPB (20:47)
[2020-03-25 09:00] VITALS: BP 155/76; PULSE 65; RESP 18; TEMP 36.7; O2SAT 100
--- NOTE | 2020-03-25 09:06 | PM.IMHP ---
H&P: HPI History of Present Illness Date/Time: 03/24/20 13:00 Chief complaint: Parkinsons Narrative: Uriah Hernandez is a 75 year old male resident of [facility]. He had a stroke in 04/2019 and went to [facility] for SNF rehab. However, he failed to improve adequately and became a termination clerk resident. He had an WA in 10/2019. During the past 6 months, he has experienced intermittent difficulty swallowing and has lost 30 pounds. His baseline PPS was 40. He was admitted to acute care on 03/21 due to 2 unresponsive spells. He was to return to [place] this AM, but during breakfast experienced a generalized tonic-clonic seizure followed by unresponsiveness. His staff psychologist said that he aspirated some food during the seizure. Because of his multiple medical issues, including dementia, dysphagia, and debility, his spouse opted for comfort care. Following his seizure he was becoming intermittently restless. Review of Systems Review of Systems: ROS unobtainable: Yes unobtainable due to medical condition PMFSH Past Medical History Medical History Chronic anemia Coronary artery disease Late presentation anterior wall STEMI in November 2018 status post balloon angioplasty to the distal LAD. Dysphagia Hypertension Parkinson's disease Transient ischemic attack Surgical History Surgical History History of cardiac catheterization (~11/2018) Status post angioplasty to the distal LAD. 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 Family History Family History Father Colon cancer Sibling Carcinoma of colon Social History Social History (Updated 03/25/20 @ 09:10 by Rosalino Paniagua MD) Social History: Surrogate decision maker: Landy Hernandez, . Code status: Do not resuscitate. Smoking status: Never smoker Alcohol intake: never Substance use: never Additional living arrangements comments: He is , and he and his have 3 grown children. He is a permanent resident at [facility]. Essentially a full assist, transfers to wheelchair with sit and stand. Occasional problems with dysphagia. 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 Favorite instrument is a trombone. Gender identity (if verbalized by the patient): Male Spiritual care concerns: No Meds Home Medications and Allergies Home Medications Medication Instructions Recorded Confirmed Type Adult Low Dose Aspirin 1 tablet PO DAILY 03/21/20 03/24/20 History Anti-Diarrheal (loperamide) See Rx Instructions .ROUTE 03/21/20 03/24/20 History .COMPLEX PRN atorvastatin 40 mg PO HS 03/21/20 03/24/20 History carbidopa-levodopa 1 tablet PO HS 03/21/20 03/24/20 History carbidopa-levodopa 2.5 tablet PO TIDWM 03/21/20 03/24/20 History carvedilol 1 tablet PO BID 03/21/20 03/24/20 History potassium chloride 1 tablet PO BID 03/21/20 03/24/20 History lactated Ringers See Rx Instructions .ROUTE 03/24/20 03/24/20 Rx .COMPLEX #1000 ml levetiracetam in NaCl (iso-os) 500 mg IV Q12HR 2 Days #400 ml 03/24/20 03/24/20 Rx Allergies Allergy/AdvReac Type Severity Reaction Status Date / Time No Known Allergies Allergy Verified 03/21/20 10:30 Vital Signs Vital Signs - 24 hr 03/24/20 20:30 Temperature 99.3 F Pulse Rate 77 Respiratory Rate 22 H Blood Pressure 144/73 H Pulse Oximetry 100 Exam Narrative: Exam Narrative: HEENT: EOMI, PERRL, sclerae nonicteric, pharyngeal mucosa pink and intact NECK: No JVD, adenopathy, or thyromegaly CHEST: Clear to auscultation with decreased BS both bases, shallow breathing HEART: NL S1/S2, regular, no
[2020-03-25] MEDS: levETIRAcetam 1000MG/NACL100ML 1,000 MG/100 ML BAG 400 MG IVPB (09:31)
[2020-03-25 11:30] VITALS: O2SAT 95
--- NOTE | 2020-03-25 16:33 | PM.IMPN ---
Progress Note: A&P Assessment and Plan (1) Palliative care by specialist: Code(s): Z51.5 - Encounter for palliative care Status: Acute Assessment and Plan: Qualifies for GIP status due to need uncontrolled confusion and restlessness and need for frequent serial assessments due to rapidly evolving mental status. Transition to PO meds Palliative regimen as ordered Observe response and plan for discharged 03/26 to [place] with hospice (2) Seizure: Code(s): R56.9 - Unspecified convulsions Status: Acute Assessment and Plan: Likely due to prior stroke (3) Parkinson's disease: Code(s): G20 - Parkinson's disease Status: Acute Assessment and Plan: Advanced with dysphagia (4) Dementia: Qualifiers: Dementia type: unspecified type Dementia behavioral disturbance: without behavioral disturbance Qualified Code(s): F03.90 - Unspecified dementia without behavioral disturbance Code(s): F03.90 - Unspecified dementia without behavioral disturbance Status: Acute (5) Coronary artery disease: Qualifiers: Coronary Disease-Associated Artery/Lesion type: [place] artery [place] vs. transplanted heart: [place] heart Associated angina: without angina Qualified Code(s): I25.10 - Atherosclerotic heart disease of [place] coronary artery without angina pectoris Code(s): I25.10 - Atherosclerotic heart disease of [place] coronary artery without angina pectoris Status: Acute (6) Dysphagia: Qualifiers: Dysphagia type: unspecified Qualified Code(s): R13.10 - Dysphagia, unspecified Code(s): R13.10 - Dysphagia, unspecified Status: Acute (7) Chronic anemia: Code(s): D64.9 - Anemia, unspecified Status: Acute (8) Hypertension: Qualifiers: Hypertension type: unspecified Qualified Code(s): I10 - Essential (primary) hypertension Code(s): I10 - Essential (primary) hypertension Status: Acute (9) Cerebrovascular disease: Code(s): I67.9 - Cerebrovascular disease, unspecified Status: Acute Subjective Date/time seen: 03/25/20 16:33 Interval history: 03/25: Tolerated cream of wheat in AM and noodles this PM. Tolerated abraham. Was having pain earlier, but comfortable now. Review of Systems Review of Systems: ROS unobtainable: Yes unobtainable due to medical condition Exam Narrative: Exam Narrative: HEENT: EOMI, PERRL, sclerae nonicteric, pharyngeal mucosa pink and intact NECK: No JVD, adenopathy, or thyromegaly CHEST: Clear to auscultation with decreased BS both bases, shallow breathing HEART: NL S1/S2, regular, no murmur ABDOMEN: BS+, soft, nontender, no mass, no bruits EXTREMITIES: No cyanosis, edema, or clubbing NEUROLOGIC: CN with right facial droop MUSCULOSKELETAL: Generalized weakness with right worse than left. PSYCH: Drowsy. Oriented to person only. Follows simple commands. Objective Data Vital Signs Vital Signs: Vital Signs - 24 hr 03/24/20 20:30 03/25/20 11:30 Temperature 99.3 F Pulse Rate 77 Respiratory Rate 22 H Blood Pressure 144/73 H Pulse Oximetry 100 95 Intake/Output Intake/Output: Intake & Output 03/22/20 03/23/20 03/24/20 03/25/20 23:59 23:59 23:59 23:59 Intake Total 100 160 Balance 100 160 Meds/Results Medications: Active Medications Generic Name Dose Route Start Last Admin Trade Name Freq PRN Reason Stop Dose Admin Acetaminophen 650 mg 03/24/20 16:08 Tylenol Tablet PO Q4H PRN Fever Bisacodyl 10 mg 03/24/20 16:09 Dulcolax Suppository RECTAL QAM PRN Constipation Glycopyrrolate 0.2 mg 03/24/20 16:08 Robinul Inj IV PUSH Q4H PRN SECRETIONS Levetiracetam 1,000 mg in 100 mls @ 400 mls/hr 03/24/20 21:00 03/25/20 09:31 Keppra Iv IVPB 400 mls/hr Q12HR ALISON Administration Lorazepam 1 mg 03/24/20 16:08 Ativan Inj IV PUSH Q2H PRN Seizures
[2020-03-25] MEDS: CARBIDOPA/LEVODOPA 25/100 MG TABLET 2 TABLET PO (17:47)
[2020-03-25] MEDS: CARBIDOPA/LEVODOPA 12.5/50 MG TABLET 1 TABLET PO (17:48)
[2020-03-25 19:53] VITALS: BP 148/83; PULSE 81; RESP 20; TEMP 36.6; O2SAT 94
[2020-03-25 19:54] VITALS: PULSE 81
[2020-03-25] MEDS: carvediloL 3.125 MG TABLET PO (19:54)
[2020-03-25] MEDS: CARBIDOPA/LEVODOPA 25/100 MG CR TABLET 1 TABLET PO (19:54)
[2020-03-25] MEDS: levETIRAcetam 500 MG TABLET 1000 MG PO (19:55)
[2020-03-26] VITALS (7 sets, daily range): BP systolic 106–137; BP diastolic 59–78; PULSE 69–72; RESP 14–20; TEMP 36.3–38.3; O2SAT 92–98
[2020-03-26] MEDS: CARBIDOPA/LEVODOPA 12.5/50 MG TABLET 1 TABLET PO ×3 (09:07→18:01)
[2020-03-26] MEDS: carvediloL 3.125 MG TABLET PO ×2 (09:07→21:39)
[2020-03-26] MEDS: levETIRAcetam 500 MG TABLET 1000 MG PO ×2 (09:07→21:39)
[2020-03-26] MEDS: CARBIDOPA/LEVODOPA 25/100 MG TABLET 2 TABLET PO ×3 (09:08→18:02)
[2020-03-26] MEDS: ACETAMINOPHEN 325 MG TABLET 650 MG PO (10:24)
[2020-03-26] MEDS: AMOXICILLIN/CLAVULANATE K SUSP 400-57 MG/5 ML 5 ML UD 400 MG PO ×2 (11:17→21:39)
--- NOTE | 2020-03-26 16:34 | PM.IMPN ---
Progress Note: A&P Assessment and Plan (1) Palliative care by specialist: Code(s): Z51.5 - Encounter for palliative care Status: Acute Assessment and Plan: Initially qualified for GIP status due to need uncontrolled confusion and restlessness and need for frequent serial assessments due to rapidly evolving mental status Transitioned to PO meds 03/25 Palliative regimen as ordered Augmentin 400mg bid added for aspiration pneumonitis NH requires SARS-CoV-2 rt-PCR negative prior to admission (obtained 03/26 and pending) (2) Cerebrovascular disease: Code(s): I67.9 - Cerebrovascular disease, unspecified Status: Acute (3) Aspiration into lower respiratory tract: Qualifiers: Encounter type: sequela Qualified Code(s): T17.800S - Unspecified foreign body in other parts of respiratory tract causing asphyxiation, sequela Code(s): T17.800A - Unspecified foreign body in other parts of respiratory tract causing asphyxiation, initial encounter Status: Acute (4) Dementia: Qualifiers: Dementia type: unspecified type Dementia behavioral disturbance: without behavioral disturbance Qualified Code(s): F03.90 - Unspecified dementia without behavioral disturbance Code(s): F03.90 - Unspecified dementia without behavioral disturbance Status: Acute Assessment and Plan: Likely mixed due to PD, stroke (5) Parkinson's disease: Code(s): G20 - Parkinson's disease Status: Acute Assessment and Plan: Advanced with dysphagia (6) Seizure: Code(s): R56.9 - Unspecified convulsions Status: Acute Assessment and Plan: Likely due to prior stroke (7) Coronary artery disease: Qualifiers: Coronary Disease-Associated Artery/Lesion type: [place] artery [place] vs. transplanted heart: [place] heart Associated angina: without angina Qualified Code(s): I25.10 - Atherosclerotic heart disease of [place] coronary artery without angina pectoris Code(s): I25.10 - Atherosclerotic heart disease of [place] coronary artery without angina pectoris Status: Acute (8) Dysphagia: Qualifiers: Dysphagia type: unspecified Qualified Code(s): R13.10 - Dysphagia, unspecified Code(s): R13.10 - Dysphagia, unspecified Status: Acute (9) Chronic anemia: Code(s): D64.9 - Anemia, unspecified Status: Acute (10) Hypertension: Qualifiers: Hypertension type: unspecified Qualified Code(s): I10 - Essential (primary) hypertension Code(s): I10 - Essential (primary) hypertension Status: Acute (11) History of completed stroke: Code(s): Z86.73 - Personal history of transient ischemic attack (TIA), and cerebral infarction without residual deficits Status: Acute Subjective Date/time seen: 03/26/20 16:34 Interval history: 03/26: Tolerated small amounts of food. Fever this AM. Sleeping most of time. Review of Systems Review of Systems: ROS unobtainable: Yes unobtainable due to medical condition Exam Narrative: Exam Narrative: HEENT: EOMI, PERRL, sclerae nonicteric, pharyngeal mucosa pink and intact NECK: No JVD CHEST: Normal effort. BILATERAL LOWER LOBE CRACKLES HEART: NL S1/S2, regular, no murmur ABDOMEN: BS+, soft, nontender, no mass, no bruits EXTREMITIES: No cyanosis, edema, or clubbing NEUROLOGIC: CN with right facial droop MUSCULOSKELETAL: Generalized weakness with right worse than left. PSYCH: Drowsy. Oriented to person only. Objective Data Vital Signs Vital Signs: Vital Signs - 24 hr 03/25/20 19:53 03/25/20 19:54 03/26/20 08:00 Temperature 97.9 F Pulse Rate 81 81 70 Respiratory Rate 20 20 Blood Pressure 148/83 H Pulse Oximetry 94 94 03/26/20 09:07 03/26/20 10:24 03/26/20 11:20 Temperature 101 F H 97.8 F Pulse Rate 70 Respiratory Rate Blood Pressure Pulse Oximetry 03/26/20 14:00 Temperature 97.4 F L Pulse Rate 69
[2020-03-26] MEDS: CARBIDOPA/LEVODOPA 25/100 MG CR TABLET 1 TABLET PO (21:40)
[2020-03-27] MEDS: carvediloL 3.125 MG TABLET PO (09:19)
[2020-03-27] MEDS: CARBIDOPA/LEVODOPA 25/100 MG TABLET 2 TABLET PO ×2 (09:19→12:46)
[2020-03-27] MEDS: levETIRAcetam 500 MG TABLET 1000 MG PO (09:19)
[2020-03-27] MEDS: CARBIDOPA/LEVODOPA 12.5/50 MG TABLET 1 TABLET PO ×2 (09:20→12:46)
[2020-03-27] MEDS: AMOXICILLIN/CLAVULANATE K SUSP 400-57 MG/5 ML 5 ML UD 400 MG PO (09:23)
[2020-03-27 09:52] VITALS: BP 184/77; PULSE 78; RESP 16; TEMP 37.1; O2SAT 94
--- NOTE | 2020-03-27 12:00 | P.DS_ITS ---
DS: Admitting Diagnosis Admitting Diagnosis Admitting Diagnosis: Parkinsons DS: Discharge Diagnosis Discharge Diagnosis (1) Seizure: Code(s): R56.9 - Unspecified convulsions Status: Acute Assessment and Plan: * Likely due to prior stroke (2) Parkinson's disease: Code(s): G20 - Parkinson's disease Status: Acute Assessment and Plan: * Advanced with dysphagia (3) Aspiration into lower respiratory tract: Qualifiers: Encounter type: sequela Qualified Code(s): T17.800S - Unspecified foreign body in other parts of respiratory tract causing asphyxiation, sequela Code(s): T17.800A - Unspecified foreign body in other parts of respiratory tract causing asphyxiation, initial encounter Status: Acute (4) History of completed stroke: Code(s): Z86.73 - Personal history of transient ischemic attack (TIA), and cerebral infarction without residual deficits Status: Acute (5) Cerebrovascular disease: Code(s): I67.9 - Cerebrovascular disease, unspecified Status: Acute (6) Coronary artery disease: Qualifiers: Coronary Disease-Associated Artery/Lesion type: [place] artery [place] vs. transplanted heart: [place] heart Associated angina: without angina Qualified Code(s): I25.10 - Atherosclerotic heart disease of [place] coronary artery without angina pectoris Code(s): I25.10 - Atherosclerotic heart disease of [place] coronary artery without angina pectoris Status: Acute (7) Chronic anemia: Code(s): D64.9 - Anemia, unspecified Status: Acute (8) Dysphagia: Qualifiers: Dysphagia type: unspecified Qualified Code(s): R13.10 - Dysphagia, uns pecified Code(s): R13.10 - Dysphagia, unspecified Status: Acute (9) Hypertension: Qualifiers: Hypertension type: unspecified Qualified Code(s): I10 - Essential (primary) hypertension Code(s): I10 - Essential (primary) hypertension Status: Acute (10) Dementia: Qualifiers: Dementia type: unspecified type Dementia behavioral disturbance: without behavioral disturbance Qualified Code(s): F03.90 - Unspecified dementia without behavioral disturbance Code(s): F03.90 - Unspecified dementia without behavioral disturbance Status: Acute Assessment and Plan: * Likely mixed due to PD, stroke (11) Palliative care by specialist: Code(s): Z51.5 - Encounter for palliative care Status: Acute Assessment and Plan: * Initially qualified for GIP status due to need uncontrolled confusion and restlessness and need for frequent serial assessments due to rapidly evolving mental status * Transitioned to PO meds 03/25 * Palliative regimen as ordered * Augmentin 400mg bid added 03/26 for aspiration pneumonitis * NH requires SARS-CoV-2 rt-PCR negative prior to admission (obtained 03/26 and pending) DS: Summary Hospital Course Reason for hospitalization: unresponsive after seizure Hospital Course: Uriah Hernandez is a 75 year old male resident of [facility]. He had a stroke in 04/2019 and went to [facility] for SNF rehab. 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 He had an [place] in 10/2019. During the past 6 months, he has experienced intermittent difficulty swallowing and has lost 30 pounds. His baseline PPS was 40. He was admitted to acute care on 03/21 due to 2 unresponsive spells. He was to return to [place] this AM, but during breakfast experienced a generalized tonic- clonic seizure followed by unresp
--- NOTE | 2020-03-27 12:00 | PM.DS ---
DS: Admitting Diagnosis Admitting Diagnosis Admitting Diagnosis: Parkinsons DS: Discharge Diagnosis Discharge Diagnosis (1) Seizure: Code(s): R56.9 - Unspecified convulsions Status: Acute Assessment and Plan: Likely due to prior stroke (2) Parkinson's disease: Code(s): G20 - Parkinson's disease Status: Acute Assessment and Plan: Advanced with dysphagia (3) Aspiration into lower respiratory tract: Qualifiers: Encounter type: sequela Qualified Code(s): T17.800S - Unspecified foreign body in other parts of respiratory tract causing asphyxiation, sequela Code(s): T17.800A - Unspecified foreign body in other parts of respiratory tract causing asphyxiation, initial encounter Status: Acute (4) History of completed stroke: Code(s): Z86.73 - Personal history of transient ischemic attack (TIA), and cerebral infarction without residual deficits Status: Acute (5) Cerebrovascular disease: Code(s): I67.9 - Cerebrovascular disease, unspecified Status: Acute (6) Coronary artery disease: Qualifiers: Coronary Disease-Associated Artery/Lesion type: [place] artery [place] vs. transplanted heart: [place] heart Associated angina: without angina Qualified Code(s): I25.10 - Atherosclerotic heart disease of [place] coronary artery without angina pectoris Code(s): I25.10 - Atherosclerotic heart disease of [place] coronary artery without angina pectoris Status: Acute (7) Chronic anemia: Code(s): D64.9 - Anemia, unspecified Status: Acute (8) Dysphagia: Qualifiers: Dysphagia type: unspecified Qualified Code(s): R13.10 - Dysphagia, unspecified Code(s): R13.10 - Dysphagia, unspecified Status: Acute (9) Hypertension: Qualifiers: Hypertension type: unspecified Qualified Code(s): I10 - Essential (primary) hypertension Code(s): I10 - Essential (primary) hypertension Status: Acute (10) Dementia: Qualifiers: Dementia type: unspecified type Dementia behavioral disturbance: without behavioral disturbance Qualified Code(s): F03.90 - Unspecified dementia without behavioral disturbance Code(s): F03.90 - Unspecified dementia without behavioral disturbance Status: Acute Assessment and Plan: Likely mixed due to PD, stroke (11) Palliative care by specialist: Code(s): Z51.5 - Encounter for palliative care Status: Acute Assessment and Plan: Initially qualified for GIP status due to need uncontrolled confusion and restlessness and need for frequent serial assessments due to rapidly evolving mental status Transitioned to PO meds 03/25 Palliative regimen as ordered Augmentin 400mg bid added 03/26 for aspiration pneumonitis NH requires SARS-CoV-2 rt-PCR negative prior to admission (obtained 03/26 and pending) DS: Summary Hospital Course Reason for hospitalization: unresponsive after seizure Hospital Course: Uriah Hernandez is a 75 year old male resident of [facility]. He had a stroke in 04/2019 and went to [facility] for SNF rehab. However, he failed to improve adequately and became a exterminator resident. He had an [place] in 10/2019. During the past 6 months, he has experienced intermittent difficulty swallowing and has lost 30 pounds. His baseline PPS was 40. He was admitted to acute care on 03/21 due to 2 unresponsive spells. He was to return to [place] this AM, but during breakfast experienced a generalized tonic-clonic seizure followed by unresponsiveness. His staff engineer said that he aspirated some food during the seizure. Because of his multiple medical issues, including dementia, dysphagia, and debility, his spouse opted for comfort care. Following his seizure he was becoming intermittently restless. Patient gradually became more alert. He was able to swallow soft foods and honey thickened liquids. But he took small quantities
[2020-03-27 13:59] LABS: SARS-CoV-2 RNA PCR Negative
[2020-03-27] MEDS: ACETAMINOPHEN 325 MG TABLET 650 MG PO (15:46)
--- NOTE | 2020-03-27 15:57 | PC.NURSE ---
Pt is A&O x 2. Pt has discharge instructions to return to [facility]. Pt had a COVID test for placement, and results were negative. Report has been called to receiving nurse, and hospice has been notified. Pt's IV has been removed, and discharge information was reviewed with receiving nurse. Opportunities for questions provided. Ambulance has been called, and paperwork has been faxed to receiving facility. Pt is to be discharged with catheter.
== END 2020-03-27 16:50 | disposition hospice, inpatient (51) | DRG 951 ==
PROVIDERS: Admitting Provider Internal Medicine; PCP Family Medicine; Visit Provider Internal Medicine
DX: Z51.5 Encounter for palliative care (principal); T17.800A Unspecified foreign body in other parts of respiratory tract causing asphyxiation, initial encounter; G20 Parkinson's disease; F02.80 Dementia in other diseases classified elsewhere, unspecified severity, without behavioral disturbance, psychotic disturbance, mood disturbance, and anxiety; R56.9 Unspecified convulsions; I67.9 Cerebrovascular disease, unspecified; I25.10 Atherosclerotic heart disease of native coronary artery without angina pectoris; R13.10 Dysphagia, unspecified; I10 Essential (primary) hypertension; D64.9 Anemia, unspecified; Z20.828 Contact with and (suspected) exposure to other viral communicable diseases; Z66 Do not resuscitate; I25.2 Old myocardial infarction; Z86.73 Personal history of transient ischemic attack (TIA), and cerebral infarction without residual deficits; Z98.49 Cataract extraction status, unspecified eye
CPT/HCPCS: 87635; A9270; C9803; J1953; U0003